=== PATIENT | female | born 1985 | race Caucasian/White ===

== ENCOUNTER 2023-06-27 06:09 | Day surgery (SDC) | payer SELFPAY, OTHER ==
[2023-06-27] VITALS (12 sets, daily range): BP systolic 0–149; BP diastolic 60–83; BMI 20.4
[2023-06-27] MEDS: TYLENOL 1000 MG PO (07:03)
[2023-06-27] MEDS: Pyridium 200 MG PO (07:03)
[2023-06-27] MEDS: NORMOSOL-R 1000 IV ×2 (07:04→20:54)
[2023-06-27] MEDS: HEPARIN 5000 UNITS SC (07:47)
--- NOTE | 2023-06-27 10:19 | W.SUR.PREOP ---
Pre-Operative Surgical Note
-
I have examined this patient prior to the performance of the scheduled procedure.
The patient's condition is unchanged from the time of the current History and
Physical and the patient is able to undergo the scheduled procedure.
--- NOTE | 2023-06-27 14:16 | W.SUR.POST ---
Surgical Immediate Post Op
Note
Pre Op Diagnosis: Pelvic organ prolapse and stress incontinence
Post Op Diagnosis: Pelvic organ prolapse and stress incontinence
Procedure Performed: Robotic total hysterectomy, IUD removal, bilateral salpingecotmy, sacrocolpopexy, posterior colporrhaphy with perineoplasty, retropubic midurethral sling and cystoscopy
Primary Surgeon: Malcolm Siddiqui MD
Secondary Surgeons: Sussy Li Pa-C
Anesthesia: General with ET tube
Estimated Blood Loss: 100cc
Specimens/Cultures: None
Doppler/Duplex/Angio (Y/N):N
Complications: None
Operative Findings: normal cystoscopy
--- NOTE | 2023-06-27 19:43 | W.IMMPOSTOP ---
Surgical Immed Post Op Note
-
Primary Surgeon: TREVOR Cummings MD
Assisting Surgeon:
Pre-op Diagnosis: elective cosmetic procedure
Post-op Diagnosis: same
Procedure Performed: bilateral breast augmentation with silicone gel implants and abdominoplasty
Anesthesia Type: General
Specimen / Cultures: none
Estimated Blood Loss: 40 cc
Complications: none
Operative Findings: as expected
--- NOTE | 2023-06-27 19:44 | OR.RPT ---
Operative Report
Operative Report
Surgeon: TREVOR Cummings MD
Preoperative diagnosis: Involutional breast changes, skin excess, diastases
Postoperative diagnosis: Same
Procedure:
1. Bilateral breast augmentation with silicone gel implants
2. Abdominoplasty with rectus plication
3. Left chest wall scar revision
Anesthesia: General
EBL: 40 cc
Complications: None
Indication for procedure: Patient is a 37-year-old female status post multiple pregnancies who is left with involutional breast changes after breast-feeding, excess skin of the abdomen, protuberance of the abdomen associated with diastases and
abdominal wall laxity. She also suffers from vaginal prolapse and incontinence. she had a history As such she was referred to gynecology for assessment. It was determined that she would undergo robotic hysterectomy and vaginal prolapse repair.
She desired to pursue elective cosmetic surgery during the same anesthesia. We discussed her goals. She desired additional volume in her bilateral breasts. This will be accomplished with bilateral silicone gel breast implants. It was discussed
that her right breast was larger than her left breast with some chest wall asymmetries. As such variable implant sizes were selected. This was done Viatrial sizers in the office. We discussed abdominal plasty at length including the planned
incisional scars that right hip to hip. We also discussed VTE, complications including hematoma, seroma infection and wound dehiscence and delayed wound healing. Given the extent of abdominal skin laxity and underlying abdominal wall laxity, she
would undergo diastases repair with plication. We discussed the potential need for vertical incision to prevent undue tension. She understood all these risks and desired to proceed
Procedure detail: Patient was identified preoperatively and the surgical site was confirmed to be the bilateral breasts and abdominal wall. she also identified a right tethered scar from a prior chest tube that she desired to have Revised. 3
cm inframammary fold incisions were marked out on under downward tension on the abdominal flap. Traditional abdominoplasty was marked out and it was discussed that a vertical scar may be left if undue tension was present. Patient was then taken
back to the operating room placed supine on the table.
Dr. Siddiqui began his procedure which included robotic pelvic prolapse repair and hysterectomy. His op report will be dictated separately. Together we planned the robotic access sites to maximize skin flap perfusion.
Upon completion of his portion the case, I reentered the surgery. Timeout for patient safety was performed was confirmed that preoperative heparin had been administered, bilateral SCDs were in place and preoperative antibiotics have been given. I
injected 5 cc of 1% lidocaine with epinephrine in the bilateral IMF fold incisions. 1 L of tumescent solution was then injected To allow for lipo dissection of the superior flap via Gladis technique.
The right breast inframammary fold incision was made with a 15 blade and carried down through Nas's with Bovie electrocautery. Superior retraction was placed in the edge of the pectoralis muscles identified. Dissection continued underneath
the pectoralis muscle in that avascular plane. The pectoralis muscle was taken off the inframammary fold leaving a 1 cm cuff. Selective dual plane dissection was performed between pectoralis and overlying breast parenchyma. Sizer was placed and
inflated to 350 cc to evaluate the overall breast pocket and this was found to be acceptable. Meticulous hemostasis was ensured and attention was drawn the left side where the exact same procedure was performed. Due to underlying chest asymmetry,
the decision was made to proceed with a smaller implant on the left side to balance her out. This decision was also confirmed preoperatively. Dissection continued the as described previously. After completion of the pocket meticulous hemostasis
was ensured, the saline sizer was then placed in this left side and inflated to 330 cc to evaluate the right relative symmetry. Attention was then drawn back to the right side where the pocket was irrigated with double antibiotic solution followed
by dilute Betadine solution and using a no touch technique and a Segura funnel a 350 cc silicone gel Sientra implant, high-profile was placed into the right breast pocket. This was closed in a deep layer with 2-0 Vicryl's followed by 3-0 and 4-0
Monocryl. Attention was then drawn to the left side where the sizer was deflated to 300 cc, at which time improved symmetry was determined. As such a 300 cc high-profile silicone gel Sientra implant was placed in the left breast. Patient was
flexed at the waist and was determined that acceptable symmetry in great shape had been achieved. Double antibiotics solution and half dilute Betadine was applied to the pocket, the skin was reprepped with Betadine as was on the right, new gloves
were donned and the implant was placed with a Segura funnel and a no touch technique.
inframammary incisions were closed with this 2-0 Vicryl deep followed by 3-0 and 4-0 Monocryl. Attention was then drawn to the abdomen. Lipodissection was performed using a 4 mm cannula with no suction. This allowed for tunneling of superior skin
flap without division of the rectus collection systems foreman vessels. A 15 blade was used to incise the lower abdominal markings. Dissection continued Bovie electrocautery at the level of fascia up to the level of the umbilicus. Umbilical stalk was preserved
with a vascular pedicle. Dissection continued superior to the umbilicus to the level of the xiphoid. Notable abdominal wall laxity was encountered. The rectus muscles were delineated and diastases repair with central plication was performed using
0 and 1 PDS sutures. This was oversewn with a 1 #1 barbed suture. Bilateral tap blocks were performed with dilute Marcaine. Of note this was also applied to the bilateral pectoralis muscles. 2 drains were placed at the level of fascia and the
patient was flexed at the waist to approximately 30 to 35 degrees to allow for skin flap tailor tacking. Excess skin was removed sharply and dogears were excised laterally. The abdominal wound was closed in layers with 2-0 Vicryl followed by 3-0
Monocryl and a running 3 oh barbed suture. The new umbilical position was marked and the inverted U was incised and the umbilicus was identified 10 cm above the incision. A series of 3 oh and 4 0 Monocryl sutures were used to tether the umbilicus
to the rectus fascia as well as the overlying dermis of the skin flap. 5-0 nylon were used to close the skin. The prior robotic port sites were closed with 4-0 Monocryl. Drains were sutured in place with 2-0 Prolene. The right lateral chest wall
scar excision was performed using 1% lidocaine with epinephrine and a 15 blade. An ellipse was drawn around the tethered scar and this was excised in totality overlying skin was mobilized and sutured in layers with 3 oh. Patient tolerated the
procedure well was performed out complication. All counts were correct at the end the case. Abdominal binder and surgical bra were placed. All dressings were applied with bacitracin, dry gauze, Tegaderm. She was extubated taken the PACU for
further care.
[2023-06-27] MEDS: DILAUDID 0.5 MG IV ×3 (20:01→23:36)
--- NOTE | 2023-06-27 20:30 | PTCARENOTE ---
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 franklin w/ - urine is orange. vaginal packing in place - liner w/ moderate blood- new one applied.
pt oriented to room w/ call johnson in reach.
[2023-06-27] MEDS: COMPAZINE 10 MG IV (21:23)
[2023-06-27] MEDS: COLACE PO (22:22)
[2023-06-27] MEDS: TORADOL IV (22:23)
[2023-06-27] MEDS: TORADOL 15 MG IV (22:23)
[2023-06-28] VITALS (7 sets, daily range): BP systolic 92–124; BP diastolic 57–96
[2023-06-28] MEDS: TORADOL 15 MG IV ×2 (03:20→09:20)
[2023-06-28] MEDS: DILAUDID 0.5 MG IV ×2 (03:30→07:43)
[2023-06-28] MEDS: NORMOSOL-R 1000 IV (04:50)
--- NOTE | 2023-06-28 06:16 | PTCARENOTE ---
franklin and vaginal packing removed. no vaginal bleeding noted on liner. pt states she feels comfortable at this time. instructed to use call johnson if she states to have pain or nausea.
[2023-06-28 06:20] LABS: Hematocrit 33.9 % (37.0-47.0); Hemoglobin 11.6 g/dL (12.0-16.0); Mean Corp Hgb Conc. 34.2 g/dL (33.0-37.0); Mean Corpuscular Hgb 31.9 pg (27.0-31.0); Mean Corpuscular Volume 93.1 fL (81.0-99.0); Mean Platelet Volume 9.9 fL (7.4-10.4); Platelet Count 201 10^3/uL (130-400); Red Blood Cell Count 3.64 10^6/uL (4.20-5.40); Red Cell Dist. Width 12.8 % (11.5-14.5); White Blood Cell Count 9.9 10^3/uL (4.8-10.8)
[2023-06-28 06:51] LABS: Blood Urea Nitrogen 7 mg/dl (7-17); Carbon Dioxide 27 mmol/L (22-30); Chloride 107 mmol/L (98-107); Estimated Creatinine Clearance 107 ml/min; Potassium 3.8 mmol/L (3.5-5.1); Sodium 135 mmol/L (135-145)
[2023-06-28] MEDS: NORMOSOL-R IV ×2 (07:42→13:32)
[2023-06-28] MEDS: COLACE 100 MG PO (07:47)
--- NOTE | 2023-06-28 09:13 | W.PN.GYN ---
Today's Communication / Plan
-
1. cbc at noon
2. franklin catheter
3. compression and ice
4. npo at midnight
Physician Note
-
Assessment and plan:
35 yo woman PPD 1 and POD 1 s/p evacuation of vulvar hematoma soon after vaginal . Her CT angio demonstrated an arterial bleed of the internal pudendal artery (right side) however IR unable to embolize. She spontaneously rupture her hemotoma so
patient was taken to OR for evacuation of clot and packing of wound.
1. Vulvar Hematoma involving the right internal pudendal artery
-Patient schedule for packing removal, EUA and wound washout on 06/29/23 at 7:15am
-s/p CT angio: right internal pudenal bleeding identified however IR unable to embolize
-s/p hematoma evacuation and packing of wound 06/28/23
-NPO at midnight
-ice packs with compression
-IV Dilaudid PRN for pain control
-s/p TXA 1 gram x2 doses
-CBC and coag at noon today; s/p 2 units RBCs overnight
-franklin with strict I and O
Malcolm Siddiqui MD
Subjective:
pain greatly improved postoperatively
denies additional bleeding
denies fevers or chills
no abnormal discharge
Objective:
Intake and Output
06/26/23 06/27/23 06/28/23 06/29/23
06:59 06:59 06:59 06:59
Intake Total 1855 / 1855
Output Total 1131 / 1131
Balance 724 / 724
Intake:
Oral fluids 480 / 480
IV fluids (Total) 1375 / 1375
Output:
Drain Output (Total) 281 / 281
Left Abdomen Tom-Phan 241 / 241
Right Abdomen Tom-Phan 40 / 40
Urine, Franklin 850 / 850
Vital Signs
Temp Pulse Resp BP Pulse Ox
99.4 F 88 16 107/73 96
06/28/23 07:00 06/28/23 07:00 06/28/23 07:00 06/28/23 07:00 06/28/23 07:00
Lab Results
06/28/23 05:28
06/28/23 05:28
: vulvar packing in place, no active bleeding, hematoma improving
--- NOTE | 2023-06-28 09:19 | W.PN.GYN ---
Today's Communication / Plan
-
1. voiding trial
2. d/c home
Physician Note
-
Assessment and Plan:
37 yo woman POD 1 s/p robotic and vaginal prolapse surgery, midurethral sling and cystoscopy combinted with abdominoplasty and breast augmentation. Patient is meeting postoperative milestons and doing well on postop day 1.
1. Postperative Care
-Hep lock IV
-Regular diet
-DVT ppx: ambulation and scds
-UOP: adequate
-Voiding trial: franklin removed, awaiting void
-CBC: WNL
-BMP: WNL
-Pain control: transition to PO pain medications
2. Dispo
-plan to d/c home after voiding trial
Subjective:
abdominal pain, very bothersome to pain, denies vaginal pain, franklin removed has not voided, tolerating regular diet. denies fevers/chills, nausea/vomiting
Objective:
Intake and Output
06/26/23 06/27/23 06/28/23 06/29/23
06:59 06:59 06:59 06:59
Intake Total 1855 / 1855
Output Total 1131 / 1131
Balance 724 / 724
Intake:
Oral fluids 480 / 480
IV fluids (Total) 1375 / 1375
Output:
Drain Output (Total) 281 / 281
Left Abdomen Tom-Phan 241 / 241
Right Abdomen Tom-Phan 40 / 40
Urine, Franklin 850 / 850
Vital Signs
Temp Pulse Resp BP Pulse Ox
99.4 F 88 16 107/73 96
06/28/23 07:00 06/28/23 07:00 06/28/23 07:00 06/28/23 07:00 06/28/23 07:00
Lab Results
06/28/23 05:28
06/28/23 05:28
Abdomen: binder in place
: minimal spotting on pad
--- NOTE | 2023-06-28 10:25 | W.PN.PLAS ---
Today's Communication
-
follow-up tomorrow for wound check and drain removal
Progress Note
Subjective Data
Doing well, Ervin remains, will attempt voiding trial per urogynecology.
Denies shortness of breath
Objective Data
Vital Signs
Temp Pulse Resp BP Pulse Ox
99.4 F 88 16 107/73 96
06/28/23 07:00 06/28/23 07:00 06/28/23 07:00 06/28/23 07:00 06/28/23 07:00
Intake and Output
06/27/23 06/28/23 06/29/23
06:59 06:59 06:59
Intake Total 1855 / 1855
Output Total 1131 / 1131
Balance 724 / 724
Intake:
Oral fluids 480 / 480
IV fluids (Total) 1375 / 1375
Output:
Drain Output (Total) 281 / 281
Left Abdomen Tom-Phan 241 / 241
Right Abdomen Tom-Phan 40 / 40
Urine, Ervin 850 / 850
physical exam:
No acute distress
No increased work of breathing
GINNY drain serosanguineous with appropriate output
No undrained fluid collections
Bilateral breast incisions intact with dressings in place
Abdominal incisions intact with dressings in place
Patient remains in beachchair position
Lab Results
06/28/23 05:28
06/28/23 05:28
Assessment / Plan
status post robotic hysterectomy, pelvic sling and bilateral breast augmentation with abdominoplasty
Patient is doing well, pain controlled, denies shortness of breath
She is maintained in beachchair but is ambulatory as needed
She requires a voiding trial per urogynecology but otherwise is appropriate for discharge
[2023-06-28] MEDS: VALIUM 5 MG PO ×2 (10:47→13:31)
[2023-06-28] MEDS: TYLENOL 650 MG PO ×2 (10:47→15:28)
[2023-06-28] MEDS: MYLICON 80 MG PO (10:53)
[2023-06-28] MEDS: ROXICODONE 5 MG PO (12:47)
--- NOTE | 2023-06-28 14:39 | PTCARENOTE ---
Received pt this morning sleeping in bed, assisted OOB to bathroom, unable to void. Sat it the chair, 2nd attempt to void unsuccessful. Pt tolerating diet. Given 5mg Oxycodone for pain. 5mg PO Valium given for abdominal spams/cramping, see MAR. Due
to void @ 1120, still unable, bladder scanned for > 700ml. Ervin placed per Dr Siddiqui's order, 1000mls out clear yellow urine. Pt and pt's mother educated on GINNY drains and Ervin care and management, mother taught how to empty GINNY drains as well and
Ervin. Education materials printed out and given to pt's mother.
--- NOTE | 2023-06-28 15:00 | CM ---
Patient seen bedside with mom, initial assessment completed. Patient lives with her spouse and children in a multiple story home. Patient denies DMe or SNF, reports VN after she had her children. Patient will be staying with her mother for a period
of time as she recovers as she has two children at home, mothers address is [address] [place] [address] in [place]. Patient currently has GINNY drains and a franklin, would like VN, agreeable to VN. CM updated [facility] liaison on patient discharge, Vanessa to meet
with patient and family members. CM will continue to follow for discharge planning needs.
Plan; home with [facility].
--- NOTE | 2023-06-28 16:10 | VNURNOTE ---
Home Health Liaison met with patient's spouse and mom at 1430 to discuss [facility] nurse visits, schedule and homebound status. Patient is asleep at this time. Spouse is agreeable and understands that visits at home will be 2-3 x per week to assess and
teach medical management of GINNY drains and catheter care. Patient is going to her moms home, address provided on referral.
[facility] brochure provided with contact information. Spouse is aware that [facility] will contact them for start of care in 1-2 days after discharge from .
[facility] referral completed in [facility].
Insurance questions discussed and potential copay/coinsurance to be discussed with spouse prior to VN visits.
Family is aware of possible copay for VN.
== END 2023-06-28 16:05 | disposition home or self-care (01) ==
LOC: COSMETIC 06:09
PROVIDERS: ATTENDING PHYSICIAN Surgery Plastic and Reconstructive Surgery; OTHER PHYSICIAN Obstetrics & Gynecology
DX: N81.2 Incomplete uterovaginal prolapse (principal); N39.3 Stress incontinence (female) (male); N36.41 Hypermobility of urethra; Z41.1 Encounter for cosmetic surgery; L98.7 Excessive and redundant skin and subcutaneous tissue; M62.08 Separation of muscle (nontraumatic), other site; L76.32 Postprocedural hematoma of skin and subcutaneous tissue following other procedure; Y83.8 Other surgical procedures as the cause of abnormal reaction of the patient, or of later complication, without mention of misadventure at the time of the procedure
CPT/HCPCS: 57425; 58571; 57250; 57288; 19325; 15830; 15847; 88305; 80051; 82565; 84520; 85027; 86850; 86900; 86901; C1729; C1763; C1771